=== PATIENT | female | born 1975 | race Caucasian/White ===

== ENCOUNTER 2023-05-11 21:45 | Emergency (ER) | payer SELFPAY ==
[2023-05-11] MEDS ORDERED: methylPREDNISolone Sodium Succinate 125 MG/2 ML SDV IM ONE (22:03)
[2023-05-11] MEDS ORDERED: Albuterol HFA 18 Gm Inhaler INH PRN (22:03)
[2023-05-11] MEDS ORDERED: Take Home: predniSONE 20 MG, 2 Tab Pack PO ONE (22:03)
[2023-05-11] MEDS ORDERED: Albuterol/Ipratropium 3.0-0.5 MG/3 ML Neb Soln NEB ONE (22:03)
== END 2023-05-11 22:34 | disposition home or self-care (01) ==
LOC: VM.ED 21:45
DX: J45.909 Unspecified asthma, uncomplicated (principal); Z87.891 Personal history of nicotine dependence
CPT/HCPCS: 94640; 96372; 99284; A9270; J2930; J7512; J7620-GY